=== PATIENT | male | born 1965 | race Caucasian/White ===

== ENCOUNTER 2016-10-19 09:05 | Day surgery (SDC) | payer OTHER ==
[2016-10-19] MEDS ORDERED: FENTANYL PF 100MCG/2ML VIAL IV ONE (14:00)
[2016-10-19] MEDS ORDERED: LIDOCAINE 2% MDV (20MG/ML) 20ML VIAL IV ONE (14:00)
[2016-10-19] MEDS ORDERED: PROPOFOL 10 MG/ML VIAL IV ONE (14:00)
--- NOTE | 2016-10-24 09:49 | Operative Note ---
DATE OF SURGERY: 10/19/2016 REFERRING: Carter Torres D.O. PROCEDURE: EGD with biopsy. 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 POSTOPERATIVE DIAGNOSES: 1. Irregular Z-line 2. Postoperative changes of the stomach consistent with prior resection with no obvious residual tumor. PROCEDURE: After informed consent was obtained from the patient, he was placed in the left lateral decubitus position in the endoscopy suite, sedated, and monitored by Department of Anesthesia. A well-lubricated [id number] gastroscope was placed into the posterior oropharynx and under direct visualization passed to the proximal esophagus. The endoscope was advanced to the proximal, mid, and distal esophagus. The GE junction was irregular, the significance of which is unclear. No ulcers, strictures, varices, or mass lesions were otherwise seen. The gastric body and the antrum were inspected. No residual tumor was seen. The pylorus, duodenal bulb, and sweep were unremarkable. J-turn views of the proximal stomach revealed postoperative changes consistent with prior resection, but no recurrent tumors were visualized. The endoscope was then straightened, the GE junction was biopsied, the endoscope was removed from the patient with no new findings or abnormalities identified. RECOMMENDATIONS: The patient should resume his medications and diet. I would recommend a repeat exam in 18 months. As always, thank you for allowing me to participate in the care of your patient. CC: Carter Torres D.O. [facility]
== END 2016-10-19 12:10 | disposition home or self-care (01) ==
LOC: HOP 09:05
PROVIDERS: ATTEND Internal Medicine Gastroenterology
DX: Z09 Encounter for follow-up examination after completed treatment for conditions other than malignant neoplasm (principal); K21.9 Gastro-esophageal reflux disease without esophagitis; K31.89 Other diseases of stomach and duodenum
CPT/HCPCS: 43239; 00740; J3010